=== PATIENT | male | born 1995 | race African-American/Black ===

== ENCOUNTER 2020-06-15 07:23 | Emergency (ER) | payer BC, SELFPAY ==
[2020-06-15 07:33] VITALS: BP 152/99; PULSE 129; RESP 18; TEMP 36.7; O2SAT 99
--- NOTE | 2020-06-15 08:14 | ED.FEVER ---
HPI - Fever General Chief Complaint: Fever Stated Complaint: Fever, Lost Taste/Smell, -COVID test Time Seen by Provider: 06/15/20 07:27 Source: RN notes reviewed History of Present Illness HPI Narrative: Patient presents emergency department from home for upper respiratory infection. States that he has not been feeling well for the past 2 days. States he has had a temperature up to 101 associated with rhinorrhea and a sore throat patient also notes dry cracked lips. He states he lost his sense of taste yesterday as well as a sense of smell he went to [facility] and had a rapid test for Covid done but the results have not been returned he denies any headaches ear pain shortness of breath abdominal pain nausea or vomiting he does note a mild cough yesterday but no cough today Related Data Allergies Allergy/AdvReac Type Severity Reaction Status Date / Time Sulfa (Sulfonamide Allergy Unknown Verified 06/15/20 07:38 Antibiotics) Review of Systems Review of Systems: Narrative: Gen.: Reports fever denies chills Eyes: Denies eye pain or visual change ENT: See HPI Respiratory: Denies shortness of breath reports cough CV: Denies chest pain or palpitations GI: Denies abdominal pain nausea, emesis or diarrhea denies burning, urgency, frequency or hematuria Musculoskeletal: Denies back pain or muscle pain Neuro: Denies numbness, tingling, weakness or focal weakness Skin: Denies rash Except as documented, all other systems reviewed and negative [facility] Past Medical History Medical History (Updated 06/15/20 @ 09:27 by Lucas Phelps DO) Patient denies significant medical history Social History Social History (Updated 06/15/20 @ 08:18 by Lucas Phelps DO) Smoking status: Never smoker Exam Narrative: Exam Narrative: APPEARANCE: No acute distress, nontoxic, resting in bed EYES: EOMI HEENT: Normocephalic, atraumatic, bilateral turbinates boggy, lips are dry and cracked, erythema the posterior pharynx and bilateral tonsils with no exudate uvula midline no trismus RESPIRATORY: No respiratory distress Clear to auscultation bilaterally with no rhonchi wheezing or rales. CARDIOVASCULAR: Regular rate and rhythm without murmurs rubs or gallops. ABDOMINAL: Soft, nontender, nondistended, no rebound or guarding MUSCULOSKELETAl: Moves all extremities. No clubbing, cyanosis or edema. NEURO: Awake and alert. Following commands, speech normal, no focal deficits SKIN:: Warm, dry. No rashes lesions or abrasions PSYCHIATRIC: Normal affect/mood, Course Course Emergency Course: Discussed with patient results of workup and diagnosis. Discussed need for follow-up with primary care, proper use of medication, and reasons to return to the emergency department. Patient understands and agrees to current treatment plan. Discussed with patient using Carmex or other ointment for chapped lips and to obtain from local drugstore Vital Signs Vital signs: Vital Signs Temperature 98.0 F 06/15/20 07:33 Pulse Rate 129 H 06/15/20 07:33 Respiratory Rate 18 06/15/20 07:33 Blood Pressure 152/99 H 06/15/20 07:33 Pulse Oximetry 99 06/15/20 07:33 Temperature 98.0 F 06/15/20 07:33 Pulse Rate 111 H 06/15/20 08:18 Respiratory Rate 18 06/15/20 08:18 Blood Pressure 152/99 H 06/15/20 07:33 Pulse Oximetry 96 06/15/20 08:18 MDM - Fever Lab Data Labs: Lab Results 06/15/20 Range/Units 08:16 SARS-CoV-2 Ag (Rapid) Pending Influenza A Screen Negative Reference Range: Negative Influenza B Screen Negative Reference Range: Negative Strep Screen Positive Group A Strep *(Reference Range: Negative)* Discharge Plan Discharge Clinical Impression: Acute streptococcal pharyngitis Patient Disposition: Home, Self-Care Condition: Stable Instruction
[2020-06-15 08:18] VITALS: PULSE 111; RESP 18; O2SAT 96
[2020-06-15] MEDS: AMOXICILLIN 500 MG CAPSULE PO (09:34)
[2020-06-15 09:37] VITALS: PULSE 108; RESP 19; O2SAT 100
[2020-06-15 19:06] LABS: SARS-CoV-2 RNA PCR Negative
== END 2020-06-15 09:38 | disposition home or self-care (01) ==
PROVIDERS: Emergency Provider Emergency Medicine
DX: J02.0 Streptococcal pharyngitis (principal); Z20.822 Contact with and (suspected) exposure to COVID-19
CPT/HCPCS: 87804; 87880; 99283; A9270; C9803; U0003

== ENCOUNTER 2021-02-07 22:56 | Emergency (ER) | payer BC, SELFPAY ==
[2021-02-07 23:03] VITALS: BP 179/106; PULSE 97; RESP 12; TEMP 36.6; O2SAT 100
--- NOTE | 2021-02-07 23:13 | PC.NURSE ---
Pt states he was looking up tall places to jump off of earlier today. PT states he is just tired of being here here- is earth according to the pt.
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
[2021-02-07 23:36] LABS: Basophils Absolute Auto 0.1 K/mm3 (0.0-0.1); Basophils Percent Auto 0.6 % (0.2-1.2); Hematocrit 48.9 % (42.0-52.0); Hemoglobin 16.4 g/dL (14.0-18.0); Immature Granulocyte Absolute 0.08 K/mm3 (0.00-0.031); Immature Granulocyte Percent A 0.6 % (0-0.5); Lymphocytes Absolute Auto 1.38 K/mm3 (0.9-3.2); Lymphocytes Percent Auto 9.8 % (18.3-44.2); Mean Corpuscular HGB Conc 33.5 g/dl (32-36); Mean Corpuscular Volume 89.6 fl (80-100); Monocytes Absolute Auto 0.6 K/mm3 (0.1-0.6); Monocytes Percent Auto 4.3 % (2.6-8.5); Neutrophils Absolute Auto 11.9 K/mm3 (1.3-6.7); Neutrophils Percent Auto 84.7 % (45.5-73.1); Platelet Count Result 315 k/mm3 (150-375); Red Blood Count 5.46 M/mm3 (4.6-6.20); Red Cell Distribution Width 12.6 % (11.5-14.5); White Blood Count 14.1 K/mm3 (4.5-10.0)
[2021-02-07 23:40] LABS: Ethanol < 10 mg/dL (<10)
[2021-02-07 23:54] LABS: Alanine Aminotransferase 32 U/L (4-50); Albumin Level 4.8 g/dL (3.5-5.1); Alkaline Phosphatase 68 U/L (38-126); Anion Gap 11 mmol/L (8-16); Aspartate Amino Transferase 37 U/L (17-59); Bilirubin,Total 0.7 mg/dL (0.2-1.3); Blood Urea Nitrogen 18 mg/dL (9-20); Calcium 9.6 mg/dL (8.4-10.2); Carbon Dioxide 23 mmol/L (22-30); Chloride 102 mmol/L (98-107); Estimated Glomerular Filt Rate > 60; Glucose 128 mg/dL (65-110); Potassium 3.8 mmol/L (3.4-5.0); Sodium 136 mmol/L (137-145)
[2021-02-08 00:17] LABS: Add Urine Microscopic? YES; Appearance Urine Clear (Clear); Bacteria Urine Trace /hpf; Bilirubin Urine Negative (Negative); Blood Urine Negative (Negative); Color Urine Yellow (Yellow); Glucose Urine UA Negative (Negative); Ketones Urine 1+ mg/dL (Negative); Leukocyte Esterase Ur Negative LEU/UL (Negative); Mucus Urine Heavy /lpf; Nitrate Urine Negative (Negative); Protein Urine 1+ mg/dL (Negative); Urobilinogen Urine Negative mg/dL (<2.0); WBC Urine 0-3 /hpf
[2021-02-08 00:21] LABS: Specific Grav Ur 1.033 (1.001-1.035)
[2021-02-08 00:33] LABS: Amphetamine Screen Urine Negative (Negative); Barbiturate Screen Urine Negative (Negative); Benzodiazepines Screen Urine Negative (Negative); Cannabinoid Screen Urine Negative (Negative); Cocaine Screen Urine Negative (Negative); Methadone Screen Urine Negative (Negative); Opiate Screen Urine Negative (Negative); Phencyclidine Screen Urine Negative (Negative)
--- NOTE | 2021-02-08 02:10 | PC.NURSE ---
PT medically cleared. Crisis communication completed. sheet metal production worker present at ED currently . Crisis working starting eval at this time.
--- NOTE | 2021-02-08 02:57 | PC.NURSE ---
Crisis states they are petitioning the patient. Crisis states they have called places and as of now no beds are available. Crisis states they will call us at 9 am for update.
[2021-02-08 03:51] LABS: EDCOVIDSCREEN Negative (Negative)
--- NOTE | 2021-02-08 07:23 | PC.NURSE ---
This RN into pts room. Pt states he doesn't want to be here and that he wants to leave. Pt states that they told me if I came here I could leave when I wanted . Informed pt that Crisis is looking for placement for pt so that he is safe. Pt states that he doesn't want to go anywhere Offered pt a breakfast try, but pt declines.
[2021-02-08 07:30] VITALS: BP 171/105; PULSE 85; RESP 17; O2SAT 100
--- NOTE | 2021-02-08 07:45 | PC.NURSE ---
Room safe, sitter at doorway
--- NOTE | 2021-02-08 08:00 | PC.NURSE ---
Pt pacing in room stating i have to leave, I am freaking out, why do i have to stay . Informed pt that he can not leave and that crisis is looking for placement for him. Pt states i cant stay here, i just want to go home Informed EDP about this. 0.5 PO of Ativan was ordered verbally.
[2021-02-08] MEDS: LORazepam (*CRX) 0.5 MG TABLET PO (08:13)
--- NOTE | 2021-02-08 09:26 | PC.NURSE ---
Patsy from [facility] called wanting to get information on pt. States she will present to and call me back.
--- NOTE | 2021-02-08 09:34 | PC.NURSE ---
Arlette from Crisis called and states that pts insurance is out of network for [facility]. Will continue to look for placement.
--- NOTE | 2021-02-08 11:15 | PC.NURSE ---
this RN called to pts room for pt increasing agitation. Pt states he doesn't want to be here and that he is going to leave. Pt was informed that he cant leave due to statements he has said. Charge nurse asked pt if he had said those things and pt responded yes I did and I will if i leave . I have no reason to live Pt continued to get agitated. Orders given for ml of Ativan and 1ml of Haldol and for placement of hard restraints. Restraints placed and pulses checked.
[2021-02-08] MEDS: HALOPERIDOL LACTATE 5 MG/ML VIAL IM (11:37)
[2021-02-08] MEDS: LORazepam INJ (*CRX) 2 MG/ML VIAL IM (11:37)
--- NOTE | 2021-02-08 11:59 | PC.NURSE ---
Pt resting at this time. Restraints have been removed. Sitter at bedside
--- NOTE | 2021-02-08 12:20 | PC.NURSE ---
PT offered lunch tray and declines
--- NOTE | 2021-02-08 12:34 | PC.NURSE ---
[facility]
--- NOTE | 2021-02-08 13:26 | PC.NURSE ---
Laura from [facility] calling to speak with pt.
--- NOTE | 2021-02-08 13:54 | PC.NURSE ---
Sienna from [facility] called and states that pt is accepted there.
[2021-02-08 14:24] VITALS: BP 156/103; PULSE 111; RESP 20; O2SAT 97
--- NOTE | 2021-02-08 14:47 | PC.NURSE ---
made contact with [facility] to transfer pt to [facility]. [facility] accepted with an eta of [phone]
--- NOTE | 2021-02-08 16:52 | PC.NURSE ---
zamzam has arrived and is aware that pt is going to [facility]
== END 2021-02-08 16:59 ==
PROVIDERS: Emergency Medicine; Emergency Provider Emergency Medicine
DX: R45.851 Suicidal ideations (principal); Z20.822 Contact with and (suspected) exposure to COVID-19
CPT/HCPCS: 36415; 80053; 80307; 81001; 84443; 85025; 87426; 96372; 99285; A9270; C9803; J1630; J2060